=== PATIENT | female | born 1945 | race Caucasian/White ===

== ENCOUNTER → 2016-06-24 | Outpatient (CLI) | payer BC ==
[2014-11-11 09:46] VITALS: BP 149/79
[~2016-06-24] MED LIST: ASPI81TA2 PO; CRAN1TAB6 PO; ESTRADIOL CREAM TOP; FISH OIL PO; L.AC1CAP6 PO; MELO-150 PO; MELO-156 PO; MULT1CAP15 PO; OMEP20TA PO; VIT1CAPS11 PO; VITAMIN D PO
--- NOTE | 2016-06-24 15:55 | KCIC ---
PROCEDURE Left ankle radiographs HISTORY Left ankle swelling for 2 weeks, foot went through a deck 2 weeks ago COMPARISON None FINDINGS Three views of the left ankle are submitted. There is soft tissue swelling. No acute fracture is identified of the left ankle. There are small plantar and dorsal calcaneal enthesophytes. There is some soft tissue swelling of the plantar aspect of the hindfoot. IMPRESSION No acute fracture is identified. There is nonspecific soft tissue swelling. Electronically signed by: Yuri Sellers MD (Jun 24, 2016 15:53:22)
== END | disposition home or self-care (01) ==
LOC: KCIC 15:10
PROVIDERS: ATTEND Family Medicine
DX: M25.572 Pain in left ankle and joints of left foot (principal); M25.472 Effusion, left ankle
CPT/HCPCS: 73610

== ENCOUNTER → 2016-12-06 | Outpatient (CLI) | payer BC ==
[2014-11-11 09:46] VITALS: BP 149/79
[~2016-12-06] MED LIST changes: +ASPI-630 PO; -ASPI81TA2 PO; +CHLO25TA PO; -MELO-150 PO; -MELO-156 PO; +MELO15TA23 PO; +MELO7.5T29 PO; -OMEP20TA PO; +OMEP20TA8 PO
[2016-12-06 09:24] LABS: BASO % 1 % (0-3); EOS % 3 % (0-3); HEMATOCRIT 34.8 % (36.0-47.0); HEMOGLOBIN 11.6 g/dL (12.0-15.5); LYMPH # 1.7 x10^3/uL (1.0-4.8); LYMPH % 28 % (24-48); MEAN CORPUSCULAR HEMOGLOBIN 29 pg (25-35); MEAN CORPUSCULAR HGB CONC 33 g/dL (31-37); MEAN CORPUSCULAR VOLUME 88 fL (79-100); MONO % 9 % (0-9); NEUT % 59 % (31-73); PLATELET COUNT 247 x10^3/uL (140-400); RED BLOOD COUNT 3.94 x10^6/uL (3.50-5.40); RED CELL DISTRIBUTION WIDTH 15.4 % (11.5-14.5); WHITE BLOOD COUNT 6.1 x10^3/uL (4.0-11.0)
[2016-12-06 09:32] LABS: ALBUMIN 3.4 g/dL (3.4-5.0); CREATININE 0.8 mg/dL (0.6-1.0); GFR 70.7; POTASSIUM 4.1 mmol/L (3.5-5.1)
[2016-12-06 09:42] LABS: PROTHROMBIN TIME PATIENT 12.4 SEC (11.7-14.0)
--- NOTE | 2016-12-06 12:53 | EKG ---
[facility] [address] [place] [address] Test Date: 2016-12-06 Test Time: 12:51:14 Pat Name: CHLOÉ HANEY Department: Room: Gender: F [employer]sembler: KAZ : 1945 Requested By: MAX MONTOYA Order Number: [id number] Reading MD: Bernice Swift Measurements Intervals [place] Rate: 77 P: 55 NV: 132 QRS: 45 QRSD: 76 T: 23 QT: 392 QTc: 445 Interpretive Statements SINUS RHYTHM NORMAL EKG Electronically Signed On 12-07-2016 20:17:08 CDT by Bernice Swift
--- NOTE | 2016-12-06 16:10 | RAD ---
Indication anticipated knee replacement. Frontal and lateral views of the chest were obtained. No prior imaging of the chest is available. The heart and pulmonary vessels appear normal. The lungs are clear. There is no pleural fluid or pneumothorax. The bony structures appear grossly intact. IMPRESSION: No acute or significant finding seen in the chest
[2016-12-06 16:56] LABS: BILIRUBIN,URINE NEGATIVE (NEG); GLUCOSE,URINE NEGATIVE (NEG)
[2016-12-06 16:57] LABS: BACTERIA,URINE 0 /HPF (0-FEW); NITRITE,URINE NEGATIVE (NEG); PH,URINE 7.5; PROTEIN,URINE NEGATIVE (NEG-TRACE); RBC,URINE 0 /HPF (0-2); SQUAMOUS EPITHELIAL CELL,UR OCC /LPF; UROBILINOGEN,URINE 0.2 mg/dL (0.2 mg/dL); WBC,URINE 0 /HPF (0-4)
== END | disposition home or self-care (01) ==
LOC: SURGPAT 14:14
PROVIDERS: ATTEND Orthopaedic Surgery
DX: E78.5 Hyperlipidemia, unspecified (principal); M17.9 Osteoarthritis of knee, unspecified; Z96.659 Presence of unspecified artificial knee joint
CPT/HCPCS: 36415; 71020; 80048; 81001; 82040; 85025; 85610; 85651; 85730; 87641; 93005

== ENCOUNTER → 2017-07-22 | Outpatient (CLI) | payer BC | END | disposition home or self-care (01) | LOC: US 09:25 | DX: M79.89 Other specified soft tissue disorders (principal); E78.5 Hyperlipidemia, unspecified; E78.00 Pure hypercholesterolemia, unspecified | CPT/HCPCS: 93971 ==

== ENCOUNTER → 2019-01-22 | Outpatient (CLI) | payer BC ==
[2016-12-31 11:22] VITALS: BP 100/63
[~2019-01-22] MED LIST changes: -CHLO25TA PO; +CHLO25TA10 PO; +OCUVITE SOFTGE1 EACH PO; -VIT1CAPS11 PO
--- NOTE | 2019-01-22 16:01 | KCIC ---
Bilateral digital screening mammograms with 3-D tomosynthesis: Reason for examination: Routine screening. Comparison is made to previous study dated 01/19/2016. Bilateral mammograms in CC and oblique projections were obtained with 2-D imaging and 3-D tomosynthesis imaging on a Siemens Inspiration unit and reviewed on the workstation. Interpretation was made with the benefit of CAD. The skin and nipples show no abnormalities. No abnormal axillary lymph nodes are seen. The breast parenchyma is predominantly fatty. (Breast density: Category A.) There are small intramammary lymph nodes seen at the 2:00 C position of the left breast. There are no other dominant masses, suspicious calcifications or architectural distortion. Benign calcifications are present. Impression: No evidence of malignancy. Recommend routine screening. BI-RAD Category 2: Benign. "Our facility is accredited by the [employer] Mammography Program." This patient's information has been entered into a reminder system for the patient to be notified with the results of her examination and a target date for the next mammogram. Electronically signed by: Deanna Kaur MD (01/22/2019 3:58 PM) [id number]
== END | disposition home or self-care (01) ==
LOC: KCIC MAMMO 14:24
PROVIDERS: ATTEND Family Medicine
DX: Z12.31 Encounter for screening mammogram for malignant neoplasm of breast (principal)
CPT/HCPCS: 77063; 77067

== ENCOUNTER → 2019-08-21 | Outpatient (CLI) | payer BC ==
[2016-12-31 11:22] VITALS: BP 100/63
--- NOTE | 2019-08-21 15:57 | RAD ---
7 view lumbar spine series with flexion and extension lateral views Clinical indications: Low back pain. FINDINGS: There is a grade 1 anterolisthesis of L4-5 which measures 5 mm in extension and 7 mm in flexion. Degenerative facet arthropathy is seen at L4-5 and L5-S1. No spondylolysis is seen. The transverse processes appear intact. There is degenerative disc space narrowing and endplate spurring throughout the lumbar spine which is mild to moderate. IMPRESSION: Grade 1 anterolisthesis of L4-5 secondary to facet arthropathy. This may result in spinal canal stenosis at this level. [id number] degenerative lumbar spondylosis. No acute compression fracture. Electronically signed by: Chris Perez MD (08/21/2019 3:54 PM) [id number]
--- NOTE | 2019-08-21 16:01 | RAD ---
2 view study right hip Clinical indications: Right hip pain. FINDINGS: No acute fracture or dislocation or lytic process is seen. No significant arthritic change is evident. IMPRESSION: No significant osseous abnormality. Electronically signed by: Chris Perez MD (08/21/2019 3:58 PM) [id number]
== END | disposition home or self-care (01) ==
LOC: RAD 12:05
PROVIDERS: ATTEND Family Medicine
DX: M47.817 Spondylosis without myelopathy or radiculopathy, lumbosacral region (principal); M48.061 Spinal stenosis, lumbar region without neurogenic claudication
CPT/HCPCS: 72114; 73502

== ENCOUNTER → 2019-09-13 | Outpatient (CLI) | payer BC ==
[2016-12-31 11:22] VITALS: BP 100/63
--- NOTE | 2019-09-13 09:02 | KCIC ---
LUMBAR SPINE WO CONTRAST History: Reason: RADICULOPATHY Acute lumbar pain since July. Alternating BLE pain. NKI. Technique: Multiplanar, multi sequential MR imaging was performed of the lumbar spine. Comparison: None Findings: Acute sacral fractures involving sacral alar and specifically S2 with angulation and edema. There is adjacent presacral edema. Grade 1 anterolisthesis L4 on L5. Increased or signal within the right L5 pedicle and facet likely related to degenerative changes. Degenerative endplate edema L3-L4. Conus terminates at the normal location. No evidence of nerve root clumping. L1-L2: Disc bulge. Mild facet arthropathy. Left subacute recess narrowing. No canal narrowing. No neuroforaminal narrowing. L2-L3: Broad-based disc bulge. Mild facet arthropathy. Bilateral subarticular recess narrowing. No canal narrowing. No neuroforaminal narrowing. L3-L4: Broad-based disc bulge. Moderate facet arthropathy. Ligamentum flavum thickening. Subarticular recess narrowing. Mild canal narrowing. Moderate neuroforaminal narrowing. L4-L5: Anterolisthesis. Disc uncovering. Disc bulge. Advanced facet arthropathy. Bilateral subarticular recess narrowing. Mild canal narrowing. Mild neuroforaminal narrowing. L5-S1: Disc bulge. Moderate facet arthropathy. No canal narrowing. Mild left neuroforaminal narrowing. Impression: 1. Acute bilateral sacral insufficiency fractures. 2. Multilevel lumbar spondylosis with canal and subarticular recess narrowing most prominent L3-L4 and L4-L5. 3. Grade 1 anterolisthesis L4 on L5, unchanged. 4. Multilevel neuroforaminal narrowing most prominent L3-L4. FOR INTERNAL CODING PURPOSES Critical result: Findings discussed with Dr. Gallegos's office and specifically with the patient at 09/13/2019 8:56 AM. RESULT CODE: (C) Electronically signed by: Miguel Loaiza DO (09/13/2019 9:00 AM) [id number]
== END ==
LOC: KCIC MRI 07:43
PROVIDERS: ATTEND Anesthesiology Pain Medicine
DX: M84.48XA Pathological fracture, other site, initial encounter for fracture (principal); M47.26 Other spondylosis with radiculopathy, lumbar region; M48.07 Spinal stenosis, lumbosacral region; M25.48 Effusion, other site; M47.818 Spondylosis without myelopathy or radiculopathy, sacral and sacrococcygeal region
CPT/HCPCS: 72148

== ENCOUNTER → 2020-01-30 | Outpatient (CLI) | payer BC ==
[2016-12-31 11:22] VITALS: BP 100/63
--- NOTE | 2020-01-30 16:01 | KCIC ---
Bilateral digital screening mammograms with 3-D tomosynthesis: Reason for examination: Routine screening. Comparison is made to previous studies dated 01/22/2019 and 01/19/2016. Bilateral mammograms in CC and oblique projections were obtained with 2-D imaging and 3-D tomosynthesis imaging on a Siemens Inspiration unit and reviewed on the workstation. Interpretation was made with the benefit of CAD. The skin and nipples show no abnormalities. No abnormal axillary lymph nodes are seen. The breast parenchyma is predominantly fatty. (Breast density: Category A.) There are no dominant masses, suspicious calcifications or architectural distortion. Benign calcifications are present. Impression: No evidence of malignancy. Recommend routine screening. BI-RAD Category 2: Benign. "Our facility is accredited by the [employer] Mammography Program." This patient's information has been entered into a reminder system for the patient to be notified with the results of her examination and a target date for the next mammogram. Electronically signed by: Deanna Kaur MD (01/30/2020 3:57 PM) [id number]
== END ==
LOC: KCIC MAMMO 14:31
PROVIDERS: ATTEND Family Medicine
DX: Z12.31 Encounter for screening mammogram for malignant neoplasm of breast (principal); N64.89 Other specified disorders of breast
CPT/HCPCS: 77063; 77067